=== PATIENT | male | born 1950 | race Caucasian/White ===

== ENCOUNTER 2017-11-08 12:03 | Emergency (ER) | payer OTHER ==
--- NOTE | 2017-11-08 12:48 | EDPHY ---
H & P Stated Complaint: R neck pain for weeks Time Seen by Provider: 11/08/17 12:48 HPI/ROS: HPI: This is a 67-year-old male who presents Chief Complaint: R neck pain for weeks Location: Right upper lateral neck Quality: Aching pain Duration: Several weeks Signs and Symptoms: No bleeding, no radiation, no numbness, no weakness, no tingling, no incontinence, + decreased range of motion, no swelling, + pain, no fever, no headache, no tinnitus, no rash Timing: Acute Severity: Moderate Context: Patient reports that he has a history of psoriatic arthritis and takes Otezla presents with complaints of right upper lateral neck pain that is described as aching accompanied by decreased range of motion to the right side for the last several weeks. He denies any injury/trauma. He reports that he has had no fever, upper respiratory symptoms, dizziness, headache, rash. Patient is very sensitive to medications and does not like to take muscle relaxers, steroids if at all possible. He denies any radiculopathy symptoms. He has tried [id number] Advil with mild transient relief. Patient is requesting MRI of the cervical spine while in the emergency room. He is originally from [place], [place] and will be traveling back home at the end of the month. Modifying Factors: Advil, transient mild relief Comment: ROS: see HPI Constitutional: No fever, no chills, no weight loss Eyes: No blurred vision Respiratory: No shortness of breath, no cough Cardiovascular: No chest pain Gastrointestinal: No nausea, no vomiting no diarrhea Genitourinary: No dysuria Extremities: No myalgias Neurologic: No weakness, no numbness Skin: No rashes Hematologic: No bruising, no bleeding MEDICAL/SURGICAL/SOCIAL HISTORY: Medical history: psoriasis, psoriatic arthritis, L collapsed lung as teen Surgical history: Denies Social history: Retired. Originally from [place], [place]. CONSTITUTIONAL: Extremely pleasant elderly white male, awake and alert, no obvious distress HEENT: Atraumatic and normocephalic. NECK: supple, right at the level of C2, C3, C4 reproducible lateral paraspinous muscle tenderness; no midline tenderness, flexion 45 degrees, extension 45 degrees, right and left lateral flexion 45 degrees. No meningismus. No carotid bruits. Cardiovascular: Normal S1/S2, regular rate, regular rhythm, without murmur rub or gallop. PULMONARY/CHEST: Symmetrical and nontender. no crepitus. Clear to auscultation bilaterally. Good air movement. No accessory muscle usage. ABDOMEN: Soft, nondistended, nontender, no ecchymosis. EXTREMITIES: 2/2 pulses, strength 5/5, DIP/PIP/MCP flexion/extension intact with good light touch sensation. no deformities, no clubbing, no cyanosis or edema. NEUROLOGICAL: no focal neuro deficits. GCS 15. Light touch sensation intact. SKIN: Warm and dry, no erythema. no rash. Good capillary refill. Source: Patient Exam Limitations: No limitations - Personal History Current Tetanus/Diphtheria Vaccine: No Current Tetanus Diphtheria and Acellular Pertussis (TDAP): No - Medical/Surgical History Hx Asthma: No Hx Chronic Respiratory Disease: No Hx Diabetes: No Hx Cardiac Disease: No Hx Renal Disease: No Hx Cirrhosis: No Hx Alcoholism: No Hx HIV/AIDS: No Hx Splenectomy or Spleen Trauma: No Other PMH: psoriasis, psoriatic arthritis, L collapsed lung as teen - Social History Smoking Status: Never smoked Constitutional: Initial Vital Signs Temperature (C) 36.8 C 11/08/17 12:22 Heart Rate 87 11/08/17 12:22 Respiratory Rate 16 11/08/17 12:22 Blood Pressure 109/70 11/08/17 12:22 O2 Sat (%) 94 11/08/17 12:22 O2 Delivery Mode Room Air Allergies/Adverse Reactions: diclofenac Allergy (Verified 11/08/17 12:21) Home Medications: Medication Instructions Recorded Herbals/Supplements -Info Only 11/08/17 Otezla 11/08/17 Valtrex 11/08/17 Medical Decision Making - Diagnostics Imaging Results: Imaging Impressions Cervical Spine MRI 11/08/17 12:56 Impression: Multilevel degenerative disk and degenerative joint disease of the cervical spine. Most significant level is at C4-C5 with mild spinal canal and mild to moderate bilateral neural foraminal narrowing. Please see detailed description by level above. Results called and discussed with Jenny Singleton on 11/08/2017, 14:34. ED Course/Re-evaluation: Vital signs reviewed upon arrival and stable. No systemic signs to indicate systemic illness. MRI cervical spine ordered Called by radiologist who advised that MRI shows multilevel mild degenerative changes throughout the cervical spine with mild central stenosis and foraminal childers meant most prominent at C4-C5. No signs of cauda equina syndrome. Patient prefers to follow up outpatient with Rheumatology and has politely declined any pain medications, muscle relaxers, Lidoderm patches, steroid taper. This patient was seen under the supervision of my secondary supervising physician. I evaluated care for this patient independently. Discussed this patient with Dr. Mejia who did not see the patient. Differential Diagnosis: Differential diagnosis includes but is not limited to carotid stenosis, aortic aneurysm, cervical degenerative disc disease, spasmodic torticollis, cervical paraspinous muscle spasm, cervical disc herniation. Departure - Departure Disposition: Home, Routine, Self-Care Clinical Impression: Disc disease, degenerative, cervical, Cervical spinal stenosis, Neural foraminal stenosis of cervical spine Condition: Good Instructions: Cervical Nerve Root Injection (DC), Cervical Spinal Stenosis (ED) Additional Instructions: Please follow-up with your internal audit senior manager if alternative methods like massage therapy, acupuncture, yolk and stretching do not improve your symptoms. You may call Medical Records tomorrow to have the results of your MRI cervical spine sent to you or you can come to the hospital to chicken picker the report. Referrals: JULIO CÉSAR AMES [Other] - As per Instructions
[2017-11-08 14:46] VITALS: BP 122/82
== END 2017-11-08 14:45 | disposition home or self-care (01) ==
DX: M50.30 Other cervical disc degeneration, unspecified cervical region (principal); M48.02 Spinal stenosis, cervical region